=== PATIENT | female | born 1985 | race Caucasian/White ===

== ENCOUNTER → 2017-04-19 | Outpatient (CLI) | payer OTHER ==
[~2017-04-19] VITALS: Ht 167.6 cm; Wt 136.0 kg
[~2017-04-19] MED LIST: CLARITIN10 MG PO; PRENATAL TABLE1 EAC3 PO; TYLENOL REGULA325 MG PO; ZOLOFT50 MG PO
[2017-04-19 08:43] VITALS: BP 144/87
== END | disposition home or self-care (01) ==
LOC: IVINF 08:37
DX: Z31.82 Encounter for Rh incompatibility status (principal)
CPT/HCPCS: 96372; J2790

== ENCOUNTER 2017-06-14 14:32 | Outpatient (CLI) | payer OTHER ==
[~2017-06-14] VITALS: Ht 167.6 cm; Wt 144.0 kg
[2017-06-14 15:08] LABS: EOSINOPHIL (%) 1.7 % (0-5); EOSINOPHIL COUNT 0.2 K/uL (0-0.3); HEMATOCRIT 41.4 % (36.0-46.0); IMMATURE GRANULOCYTE (%) 0.6 % (0.0-0.7); IMMATURE GRANULOCYTE COUNT 0.1 K/uL; INSTRUMENT ABS NEUTROPHIL CT 5.8 K/uL; LYMPHOCYTE COUNT 2.3 K/uL (1.0-2.8); MCH 29.8 PG (29.0-34.0); MCHC 34.3 G/DL (30.0-36.0); MEAN PLAT.VOLUME 10.4 uM^3 (9.5-12.4); MONOCYTE (%) 6.4 % (3-12); MONOCYTE COUNT 0.6 K/uL (0-0.8); NEUTROPHIL (%) 65.1 % (45-76); NEUTROPHIL COUNT 5.8 K/uL (1.8-6.4); PLATELET COUNT 247 K/uL (156-360); RBC DIS.WIDTH-CV 13.7 % (11.8-14.6); RBC DIS.WIDTH-SD 43.8 % (39-53); RED BLOOD COUNT 4.76 M/uL (3.80-5.20)
[2017-06-14 15:17] VITALS: BP 152/86
[2017-06-14 15:32] LABS: ALKALINE PHOSPHATASE 131 IU/L (3-129); ANION GAP 8 MEQ/L (2-14); CHLORIDE 108 MEQ/L (99-109); GFR ESTIMATE (CALCULATED) > 59 mL/min/; GLUCOSE 105 mg/dL (70-99); POTASSIUM 4.1 MEQ/L (3.7-5.4); SAMPLE HEMOLYSIS CHECK 0; SAMPLE ICTERIC CHECK 0; SAMPLE LIPEMIA CHECK 0; SODIUM 136 MEQ/L (136-147); TOTAL BILIRUBIN 0.5 MG/DL (0.0-1.0); UREA NITROGEN (BUN) 14 mg/dL (9-23)
[2017-06-14 15:37] VITALS: BP 138/86
[2017-06-14 16:07] VITALS: BP 133/87
[2017-06-14 16:18] LABS: UR CREATININE CONCENTRATION 262.1 MG/DL
[2017-06-14 16:37] VITALS: BP 139/102
[2017-06-14 17:26] VITALS: BP 140/86
== END 2017-06-14 18:00 | disposition home or self-care (01) ==
LOC: LDRP-OP → 2WEST 14:33 → LDRP-OP 08-09 13:38
PROVIDERS: Nurse Practitioner
DX: O16.3 Unspecified maternal hypertension, third trimester (principal); O36.8130 Decreased fetal movements, third trimester, not applicable or unspecified; O99.343 Other mental disorders complicating pregnancy, third trimester; F32.9 Major depressive disorder, single episode, unspecified; Z3A.36 36 weeks gestation of pregnancy
CPT/HCPCS: 59025; 80053; 82570; 84156; 85025; G0378

== ENCOUNTER 2017-06-19 16:50 | Outpatient (CLI) | payer OTHER ==
[~2017-06-19] VITALS: Ht 167.6 cm; Wt 143.3 kg
[2017-06-19 17:14] VITALS: BP 138/88
[2017-06-19 17:24] VITALS: BP 139/90
[2017-06-19 17:48] VITALS: BP 125/77
[2017-06-19 18:00] LABS: HEMATOCRIT 40.8 % (36.0-46.0); MCH 28.8 PG (29.0-34.0); MCHC 33.1 G/DL (30.0-36.0); MEAN PLAT.VOLUME 10.5 uM^3 (9.5-12.4); PLATELET COUNT 239 K/uL (156-360); RBC DIS.WIDTH-CV 13.7 % (11.8-14.6); RBC DIS.WIDTH-SD 43.3 % (39-53); RED BLOOD COUNT 4.69 M/uL (3.80-5.20)
[2017-06-19 18:08] VITALS: BP 134/78
[2017-06-19 18:09] LABS: CHLORIDE 112 mEq/L (99-109); SODIUM 140 mEq/L (136-147)
[2017-06-19 18:11] LABS: GLUCOSE 81 mg/dL (70-99)
[2017-06-19 18:12] LABS: ANION GAP 11 MEQ/L (2-14)
[2017-06-19 18:13] LABS: UR CREATININE CONCENTRATION 207.5 MG/DL
[2017-06-19 18:13] LABS: TOTAL BILIRUBIN 0.4 mg/dL (0.0-1.0)
[2017-06-19 18:14] LABS: ALKALINE PHOSPHATASE 159 IU/L (3-129); GFR ESTIMATE (CALCULATED) > 59 mL/min/
[2017-06-19 18:15] LABS: UREA NITROGEN (BUN) 9 mg/dL (9-23)
== END 2017-06-19 18:50 | disposition home or self-care (01) ==
LOC: LDRP-OP 16:50 → 2WEST 16:51 → LDRP-OP 08-09 18:38
PROVIDERS: Advanced Practice Midwife
DX: O13.3 Gestational [pregnancy-induced] hypertension without significant proteinuria, third trimester (principal); Z3A.37 37 weeks gestation of pregnancy
CPT/HCPCS: 59025; 80053; 82570; 84156; 85027; G0378

== ENCOUNTER 2017-06-22 03:16 | Inpatient (IN) | payer OTHER ==
[2017-06-22] VITALS (20 sets, daily range): BP systolic 105–145; BP diastolic 53–89
[~2017-06-22] VITALS: Ht 167.6 cm; Wt 142.7 kg
[2017-06-22 05:04] LABS: EOSINOPHIL (%) 1.5 % (0-5); EOSINOPHIL COUNT 0.2 K/uL (0-0.3); HEMATOCRIT 39.8 % (36.0-46.0); IMMATURE GRANULOCYTE (%) 0.5 % (0.0-0.7); IMMATURE GRANULOCYTE COUNT 0.1 K/uL; INSTRUMENT ABS NEUTROPHIL CT 9.6 K/uL; LYMPHOCYTE COUNT 2.7 K/uL (1.0-2.8); MCH 28.9 PG (29.0-34.0); MCHC 33.7 G/DL (30.0-36.0); MCV 85.8 FL (83-99); MEAN PLAT.VOLUME 10.6 uM^3 (9.5-12.4); MONOCYTE (%) 4.5 % (3-12); MONOCYTE COUNT 0.6 K/uL (0-0.8); NEUTROPHIL (%) 72.7 % (45-76); NEUTROPHIL COUNT 9.6 K/uL (1.8-6.4); PLATELET COUNT 216 K/uL (156-360); RBC DIS.WIDTH-CV 13.4 % (11.8-14.6); RBC DIS.WIDTH-SD 41.7 % (39-53); RED BLOOD COUNT 4.64 M/uL (3.80-5.20); WHITE BLOOD COUNT 13.3 K/uL (4.1-10.2)
[2017-06-22] MEDS ORDERED: IBUPROFEN800 MG PO (10:53)
[2017-06-23 04:44] VITALS: BP 135/78
[2017-06-23 07:05] VITALS: BP 146/90
[2017-06-23 07:30] LABS: EOSINOPHIL (%) 1.5 % (0-5); EOSINOPHIL COUNT 0.2 K/uL (0-0.3); HEMATOCRIT 32.6 % (36.0-46.0); IMMATURE GRANULOCYTE COUNT 0.1 K/uL; INSTRUMENT ABS NEUTROPHIL CT 8.4 K/uL; LYMPHOCYTE COUNT 3.3 K/uL (1.0-2.8); MCH 29.1 PG (29.0-34.0); MCHC 32.2 G/DL (30.0-36.0); MCV 90.3 FL (83-99); MEAN PLAT.VOLUME 10.5 uM^3 (9.5-12.4); MONOCYTE (%) 4.6 % (3-12); MONOCYTE COUNT 0.6 K/uL (0-0.8); NEUTROPHIL (%) 66.9 % (45-76); NEUTROPHIL COUNT 8.4 K/uL (1.8-6.4); PLATELET COUNT 188 K/uL (156-360); RBC DIS.WIDTH-CV 14.2 % (11.8-14.6); RBC DIS.WIDTH-SD 47.7 % (39-53); RED BLOOD COUNT 3.61 M/uL (3.80-5.20); WHITE BLOOD COUNT 12.6 K/uL (4.1-10.2)
[2017-06-23 14:30] VITALS: BP 140/90
[2017-06-23 20:06] VITALS: BP 142/78
[2017-06-23 23:23] VITALS: BP 130/81
[2017-06-24 03:02] VITALS: BP 155/84
[2017-06-24] MEDS ORDERED: PROCARDIA XL30 MG PO (08:59)
[2017-06-24 09:00] VITALS: BP 129/78
[2017-06-24 11:56] VITALS: BP 137/86
== END 2017-06-24 14:10 | disposition home or self-care (01) | DRG 775 ==
LOC: LDRP-OP 03:16 → 2WEST 03:17 → LDRP-OP 08-09 19:00
PROVIDERS: Obstetrics & Gynecology; Obstetrics & Gynecology Gynecology
DX: O70.1 Second degree perineal laceration during delivery (principal); O13.4 Gestational [pregnancy-induced] hypertension without significant proteinuria, complicating childbirth; O99.344 Other mental disorders complicating childbirth; F42.9 Obsessive-compulsive disorder, unspecified; F32.9 Major depressive disorder, single episode, unspecified; F41.9 Anxiety disorder, unspecified; O26.893 Other specified pregnancy related conditions, third trimester; Z67.41 Type O blood, Rh negative; Z3A.37 37 weeks gestation of pregnancy; Z37.0 Single live birth
CPT/HCPCS: 59025; 80053; 82570; 83030; 84156; 85025; 85027; 86850; 86870; 86900; 86901; C1755; G0378; J2790; J3010; J7120